=== PATIENT | female | born 1975 | race Caucasian/White ===

== ENCOUNTER 2020-09-14 11:33 | Emergency (ER) | payer BC, SELFPAY ==
[2020-09-14] VITALS (23 sets, daily range): BP systolic 128–144; BP diastolic 82–103; PULSE 70–88; RESP 12–20; TEMP 36.8; O2SAT 100
--- NOTE | ~2020-09-14 | XR_ITS ---
XR chest 2V DATE: 09/14/2020 12:32 INDICATION: Acute onset of midsternal chest pain TECHNIQUE: PA and lateral views COMPARISON: None FINDINGS: Normal heart size. No hilar or mediastinal enlargement. The lungs are clear of infiltrate o r consolidation. No pleural effusion or pulmonary vascular congestion or pneumothorax. Included skeletal structures are unremarkable. IMPRESSION: Negative Reviewed, dictated and finalized at location A. [employer]INE[employer] IMPRESSION: Negative
--- NOTE | 2020-09-14 11:40 | ECG_ITS ---
Measurements Intervals [place] Rate: 74 P: 72 ID: 158 QRS: 57 QRSD: 86 T: 55 QT: 367 QTc: 409 Interpretive Statements SINUS RHYTHM POSSIBLE LEFT ATRIAL ENLARGEMENT INCOMPLETE RIGHT BUNDLE BRANCH BLOCK BORDERLINE ECG Electronically Signed On 09-14-2020 11:46:35 [employer] by Dane Proctor D.O.
[2020-09-14 11:56] LABS: Basophils Absolute Auto 0.1 K/mm3 (0.0-0.1); Basophils Percent Auto 0.8 % (0.2-1.2); Eosinophils Absolute Auto 0.1 K/mm3 (0-0.3); Eosinophils Percent Auto 2.2 % (0-4.4); Hematocrit 38.7 % (37.0-47.0); Hemoglobin 12.8 g/dL (12.0-15.0); Immature Granulocyte Absolute 0.02 K/mm3 (0.00-0.031); Immature Granulocyte Percent A 0.3 % (0-0.5); Lymphocytes Absolute Auto 2.28 K/mm3 (0.9-3.2); Mean Corpuscular HGB Conc 33.1 g/dl (32-36); Mean Corpuscular Hemoglobin 29.6 pg (26-34); Mean Corpuscular Volume 89.6 fl (80-100); Mean Platelet Volume 10.4 fl (7.4-10.4); Monocytes Absolute Auto 0.4 K/mm3 (0.1-0.6); Neutrophils Absolute Auto 3.2 K/mm3 (1.3-6.7); Neutrophils Percent Auto 52.7 % (45.5-73.1); Platelet Count Result 247 k/mm3 (150-375); Red Blood Count 4.32 M/mm3 (4.2-5.4); Red Cell Distribution Width 12.4 % (11.5-14.5)
[2020-09-14 12:07] LABS: Prothrombin Time 13.9 Seconds (11.1-14.7)
[2020-09-14 12:08] LABS: Partial Thromboplastin Time 26.6 SECONDS (22.3-36.8)
[2020-09-14 12:11] LABS: Anion Gap 4 mmol/L (8-16); Blood Urea Nitrogen 11 mg/dL (7-17); Calcium 8.5 mg/dL (8.4-10.2); Carbon Dioxide 28 mmol/L (22-30); Chloride 105 mmol/L (98-107); Estimated CRCL calculation 80 ml/min; Estimated Glomerular Filt Rate > 60; Glucose 99 mg/dL (65-105); Potassium 3.9 mmol/L (3.4-5.0); Sodium 137 mmol/L (137-145)
[2020-09-14 12:21] LABS: Troponin I < 0.012 ng/mL (0.000-0.034)
[2020-09-14 12:36] LABS: D Dimer 0.27 ug/mL (<0.48)
--- NOTE | 2020-09-14 12:57 | ED.CHESTPAIN ---
HPI - Chest Pain General Chief Complaint: Chest Pain Stated Complaint: CP SINCE LAST NIGHT Time Seen by Provider: 09/14/20 12:17 Source: patient Mode of arrival: ambulatory Limitations: no limitations History of Present Illness HPI narrative: Patient is a 44-year-old female complaining of chest pain, midsternal, 6 out of 10, currently 0 out of 10 pain, nonradiating started last night. Patient states that her pain is now resolved. Patient denies any shortness of breath, abdominal pain, diaphoresis, nausea, vomiting, fever or chills. Related Data Home Medications Medication Instructions Recorded Confirmed bupropion HCl 150 mg 24 hr tablet, 150 mg PO QPM tablet 05/07/20 05/07/20 extended release clonazepam 1 mg tablet 1 mg PO .QHS tablet 05/07/20 05/07/20 Allergies Allergy/AdvReac Type Severity Reaction Status Date / Time No Known Allergies Allergy Unverified 07/30/14 13:54 Review of Systems Review of Systems: All systems reviewed & are unremarkable except as noted in HPI and below Constitutional: Constitutional: Denies body ache(s), Denies chills, Denies excessive sweating, Denies fatigue, Denies fever(s), Denies headache(s), Denies lethargy, Denies malaise, Denies weakness and Denies weight loss Eyes: Eyes: Denies blurry vision, Denies change in vision and Denies loss of vision ENT: Denies dizziness, Denies ear discharge, Denies headache(s), Denies lip swelling, Denies epistaxis, Denies nasal congestion, Denies neck pain, Denies throat swelling and Denies tongue swelling Cardiovascular: Cardiovascular: Denies diaphoresis, Denies rapid heart rate, Denies edema, Denies irregular heart rhythm, Denies lightheadedness, Denies palpitations, Denies dyspnea and Denies dyspnea on exertion Respiratory: Respiratory: Denies chest congestion, Denies cough, Denies hemoptysis, Denies dyspnea and Denies dyspnea on exertion Gastrointestinal: Gastrointestinal: Denies abdominal pain, Denies melena, Denies hematochezia, Denies diarrhea, Denies nausea, Denies vomiting and Denies hematemesis Musculoskeletal: Musculoskeletal: Denies abnormal gait, Denies deformity, Denies joint swelling, Denies limited range of motion, Denies neck pain and Denies numbness Neurologic: Denies Abnormal speech present, Denies abnormal gait, Denies confusion, Denies dizziness, Denies headache(s), Denies focal weakness, Denies loss of vision, Denies numbness, Denies Other visual disturbances, Denies Sensory deficit (Neuro) and Denies weakness Psychiatric: Psychiatric: Denies confusion, Denies depression, Denies auditory hallucinations, Denies homicidal ideation and Denies suicidal ideation Endocrine: Endocrine: Denies cold intolerance, Denies excessive sweating, Denies fatigue, Denies heat intolerance and Denies palpitations Hematologic/Lymphatic: Hematologic/Lymphatic: Denies easy bleeding and Denies easy bruising Allergic/Immunologic: Allergic/Immunologic: Denies lip swelling, Denies throat swelling and Denies tongue swelling PMFSH Past Medical History Medical History (Updated 09/14/20 @ 14:47 by Son Davila MD) Anxiety Depression Migraines Thyroid disease Surgical History Surgical History H/O lumpectomy Family History Family History Other Diabetes mellitus Family history of arthritis Family history of malignant neoplasm of ovary Hypertension Social History Social History Smoking status: Never smoker Alcohol intake: current Gender identity (if verbalized by the patient): Female Exam Const: General: cooperative, healthy appearing, comfortable, no acute distress, well developed, alert and awake; No confusion Orientation/consciousness: oriented to person, oriented to place, oriented to time, patient oriented x3 and No confusion Limitations: no limitations
[2020-09-14] MEDS: ONDANSETRON INJ 4 MG/2 ML VIAL IV PUSH (14:15)
== END 2020-09-14 14:55 | disposition home or self-care (01) ==
PROVIDERS: Emergency Medicine; Emergency Provider Emergency Medicine; PCP Family Medicine
DX: R07.89 Other chest pain (principal); F41.9 Anxiety disorder, unspecified; F32.9 Major depressive disorder, single episode, unspecified; E07.9 Disorder of thyroid, unspecified; I45.10 Unspecified right bundle-branch block; R94.31 Abnormal electrocardiogram [ECG] [EKG]
CPT/HCPCS: 36415; 71046; 80048; 84484; 85025; 85380; 85610; 85730; 93005; 96374; 99284; J2405

== ENCOUNTER 2020-10-01 09:26 | Outpatient (CLI) | payer BC, SELFPAY ==
--- NOTE | 2020-10-01 | EST_ITS ---
Patient Info Name: Naomy Grijalva Age: 44 years : 1975 Gender: Female Ht: 68 in Wt: 178 lbs BSA: 1.98 m2 Exam Date: 10/01/2020 10:10 AM Exam Location: [facility] Stress Patient Status: Outpatient Admit Date: 10/01/2020 Staff Ordering Physician: Bear, Minh Talavera M.D. Attending Provider: BearMinh M.D. Exercise Technologist: Ariana Vanessa RDCS Exercise Physician: Cricket Brooks MD Exam Type: CA stress test treadmill Study Info Indications R07.9 - Chest pain, unspecified A treadmill exercise stress test was performed. Summary 1. Maximal treadmill stress EKG study achieving 98% of age predicted maximum heart rate and 12.1 METS at peak exercise. 2. Normal ECG response to exercise without changes meeting strict criteria for reversible myocardial ischemia. 3. No arrhythmias were observed during the examination. 4. Exercise capacity very good at >10 METS. 5. Normal blood pressure response. 6. No chest discomfort with stress test. Protocol: [facility] Stress ECG Details Stage: REST Duration (min): 1 min : 12 sec Speed (mph): 0.0 Grade (%): 0 HR (bpm): 75 SBP (mmHg): 145 DBP (mmHg): 89 METS: --- Stage: REST Duration (min): 9 min : 11 sec Speed (mph): 0.0 Grade (%): 0 HR (bpm): 81 SBP (mmHg): 145 DBP (mmHg): 89 METS: --- Stage: STAGE 1 Duration (min): 1 min : 0 sec Speed (mph): 1.7 Grade (%): 10 HR (bpm): 104 SBP (mmHg): 145 DBP (mmHg): 89 METS: --- Stage: STAGE 1 Duration (min): 2 min : 0 sec Speed (mph): 1.7 Grade (%): 10 HR (bpm): 104 SBP (mmHg): 145 DBP (mmHg): 89 METS: --- Stage: STAGE 1 Duration (min): 3 min : 0 sec Speed (mph): 1.7 Grade (%): 10 HR (bpm): 106 SBP (mmHg): 153 DBP (mmHg): 85 METS: --- Stage: STAGE 2 Duration (min): 1 min : 0 sec Speed (mph): 2.5 Grade (%): 12 HR (bpm): 115 SBP (mmHg): 153 DBP (mmHg): 85 METS: --- Stage: STAGE 2 Duration (min): 2 min : 0 sec Speed (mph): 2.5 Grade (%): 12 HR (bpm): 119 SBP (mmHg): 160 DBP (mmHg): 85 METS: --- Stage: STAGE 2 Duration (min): 3 min : 0 sec Speed (mph): 2.5 Grade (%): 12 HR (bpm): 124 SBP (mmHg): 160 DBP (mmHg): 85 METS: --- Stage: STAGE 3 Duration (min): 1 min : 0 sec Speed (mph): 3.4 Grade (%): 14 HR (bpm): 135 SBP (mmHg): 176 DBP (mmHg): 86 METS: --- Stage: STAGE 3 Duration (min): 2 min : 0 sec Speed (mph): 3.4 Grade (%): 14 HR (bpm): 143 SBP (mmHg): 176 DBP (mmHg): 86 METS: --- Stage: STAGE 3 Duration (min): 3 min : 0 sec Speed (mph): 3.4 Grade (%): 14 HR (bpm): 149 SBP (mmHg): 198 DBP (mmHg): 81 METS: --- Stage: STAGE 4 Duration (min): 1 min : 0 sec Speed (mph): 4.2 Grade (%): 16 HR (bpm): 160 SBP (mmHg): 198 DBP (mmHg): 81 METS: ---
== END 2020-10-01 09:27 | disposition home or self-care (01) ==
PROVIDERS: PCP Family Medicine; Visit Provider Nurse Practitioner Family
DX: R07.89 Other chest pain (principal)
CPT/HCPCS: 93017

== ENCOUNTER 2022-10-02 09:25 | Outpatient (CLI) | payer BC, SELFPAY ==
[2022-10-02 19:56] LABS: Free T4 Free Thyroxine 1.45 ng/mL (0.78-2.19)
== END 2022-10-02 09:26 | disposition home or self-care (01) ==
LOC: ANHWCLAB 09:26
PROVIDERS: PCP Family Medicine; Visit Provider Internal Medicine Endocrinology, Diabetes & Metabolism
DX: E03.9 Hypothyroidism, unspecified (principal)
CPT/HCPCS: 36415; 84439; 84443